=== PATIENT | female | born 1935 | race Caucasian/White ===

== ENCOUNTER 2018-06-08 01:34 | Inpatient (IN) | payer MEDICARE, MEDICAID ==
[~2018-06-08] VITALS: Ht 162.6 cm; Wt 71.4 kg
[~2018-06-08 01:34] MED LIST: AMIT10TA PO; LORA-445 PO
[2018-06-08] MEDS ORDERED: MORPHINE SULFATE 4 MG/ML, 1ML IVPush PRN (02:00)
[2018-06-08] MEDS ORDERED: ONDANSETRON 2MG/ML, 2ML IVPush ONE (02:00)
[2018-06-08 02:13] LABS: BASOPHILS # (AUTO) 0.02 x10^3/uL (0-0.1); BASOPHILS % (AUTO) 0 % (0-1); EOSINOPHILS # (AUTO) 0.18 x10^3/uL (0-0.4); EOSINOPHILS % (AUTO) 2 % (1-7); LYMPHOCYTES # (AUTO) 1.81 x10^3/uL (1-3.4); LYMPHOCYTES % (AUTO) 22 % (22-44); MD NO; MEAN CORPUSCULAR HGB CONC 33.7 g/dL (32.4-35.8); MEAN CORPUSCULAR VOLUME 103.9 fL (80-100); MEAN PLATELET VOLUME 8.4 fL (7.4-10.4); MONOCYTES % (AUTO) 7 % (2-9); NEUTROPHILS # (AUTO) 5.66 x10^3/uL (1.8-6.8); NEUTROPHILS % (AUTO) 68 % (42-75); PLATELET COUNT 181 x10^3/uL (130-400); RED BLOOD COUNT 3.33 x10^6/uL (3.82-5.3); RED CELL DISTRIBUTION WIDTH 14.4 % (9.6-15.2)
[2018-06-08 02:23] LABS: ALBUMIN 3.2 g/dL (3.4-5.0); ANION GAP 9 mmol/L (5-15); CALCIUM 8.4 mg/dL (8.5-10.1); CHLORIDE 101 mmol/L (98-107); CREATININE 0.53 mg/dL (0.55-1.02)
[2018-06-08] MEDS ORDERED: MORPHINE SULFATE 4 MG/ML, 1ML ONE (02:23)
[2018-06-08] MEDS ORDERED: ONDANSETRON 2MG/ML, 2ML ONE ×4 (02:23→10:25)
[2018-06-08] MEDS ORDERED: ONDANSETRON 2MG/ML, 2ML IVPush PRN ×2 (04:00→04:30)
[2018-06-08] MEDS ORDERED: NS + 20MEQ KCL 1,000 ML IV SCH (04:16)
[2018-06-08] MEDS ORDERED: GLUCAGON 1 MG IM PRN (04:30)
[2018-06-08] MEDS ORDERED: DOCUSATE 100 MG CAPSULE PO PRN (04:30)
[2018-06-08] MEDS ORDERED: POLYETHYLENE GLYCOL 17 GM PACKET PO PRN (04:30)
[2018-06-08] MEDS ORDERED: DEXTROSE 4 GM TAB.CHEW PO PRN (04:30)
[2018-06-08] MEDS ORDERED: DEXTROSE 50%, 50ML SYRINGE IVPush PRN (04:30)
[2018-06-08] MEDS ORDERED: morphine SULFATE 10 MG/ML, 1ML IVPush PRN (04:30)
[2018-06-08] MEDS ORDERED: ACETAMINOPHEN 325 MG TABLET PO PRN ×3 (04:30→10:30)
[2018-06-08 07:01] VITALS: BP 114/72
[2018-06-08] MEDS: INSULIN LISPRO 100 UNITS/ML, PEN SQ-INSULIN SCH ×4 (08:41→21:00)
[2018-06-08] MEDS ORDERED: FENTANYL PF 100 MCG/2ML ONE (08:54)
[2018-06-08] MEDS: SODIUM CHLORIDE FLUSH 10ML SYR IVF SCH ×2 (09:00→21:00)
[2018-06-08] MEDS: SENNA/DOCUSATE TABLET PO SCH (09:00)
[2018-06-08] MEDS: LORazepam 0.5MG TABLET PO SCH (09:00)
[2018-06-08] MEDS ORDERED: PROPOFOL 10 MG/ML, 20ML ONE (09:35)
[2018-06-08] MEDS ORDERED: CEFAZOLIN 1,000 MG ONE (09:35)
[2018-06-08] MEDS ORDERED: BUPIVACAINE/PF 0.5% ONE (09:35)
[2018-06-08] MEDS ORDERED: DEXAMETHASONE 4 MG/ML, 1ML ONE (09:35)
[2018-06-08] MEDS ORDERED: OXYcodone 5 MG/5 ML ORAL.SOL UDC ONE (10:17)
[2018-06-08] MEDS ORDERED: OXYcodone 5 MG/5 ML ORAL.SOL UDC PO PRN ×2 (10:30)
[2018-06-08] MEDS ORDERED: ONDANSETRON 2MG/ML, 2ML IV PRN ×2 (10:30)
[2018-06-08] MEDS ORDERED: MIDAZOLAM 1 MG/ML, 2ML IV PRN (10:30)
[2018-06-08] MEDS ORDERED: FENTANYL PF 100 MCG/2ML IV PRN ×2 (10:30)
[2018-06-08] MEDS ORDERED: SUCCINYLCHOLINE 20 MG/ML, 10ML ONE (11:00)
[2018-06-08 14:30] VITALS: BP 91/62
[2018-06-08] MEDS: OXYcodone/APAP 5/325MG TABLET PO PRN ×2 (14:43→19:00)
[2018-06-08] MEDS: CEFAZOLIN PMX 1GM/50ML 50 ML IV SCH ×2 (14:44→23:35)
[2018-06-08 20:00] VITALS: BP 100/54
[2018-06-08] MEDS: AMITRIPTYLINE 25 MG TABLET PO SCH (21:33)
[2018-06-09 02:04] VITALS: BP 121/76
[2018-06-09 05:30] LABS: BASOPHILS # (AUTO) 0.02 x10^3/uL (0-0.1); BASOPHILS % (AUTO) 0 % (0-1); EOSINOPHILS % (AUTO) 0 % (1-7); LYMPHOCYTES # (AUTO) 1.34 x10^3/uL (1-3.4); LYMPHOCYTES % (AUTO) 18 % (22-44); MD NO; MEAN CORPUSCULAR HGB CONC 33.1 g/dL (32.4-35.8); MEAN CORPUSCULAR VOLUME 105.8 fL (80-100); MEAN PLATELET VOLUME 8.5 fL (7.4-10.4); MONOCYTES # (AUTO) 1.02 x10^3/uL (0.2-0.8); MONOCYTES % (AUTO) 14 % (2-9); NEUTROPHILS % (AUTO) 69 % (42-75); PLATELET COUNT 132 x10^3/uL (130-400); RED BLOOD COUNT 2.28 x10^6/uL (3.82-5.3); RED CELL DISTRIBUTION WIDTH 14.6 % (9.6-15.2)
[2018-06-09 05:38] LABS: CHLORIDE 102 mmol/L (98-107)
[2018-06-09 05:47] LABS: ANION GAP 7 mmol/L (5-15); CALCIUM 7.4 mg/dL (8.5-10.1); CREATININE 0.37 mg/dL (0.55-1.02)
[2018-06-09] MEDS: ENOXAPARIN 40 MG/0.4 ML SQ SCH (06:12)
[2018-06-09] MEDS: INSULIN LISPRO 100 UNITS/ML, PEN SQ-INSULIN SCH ×4 (06:12→21:37)
[2018-06-09] MEDS: CEFAZOLIN PMX 1GM/50ML 50 ML IV SCH (07:38)
[2018-06-09] MEDS: SENNA/DOCUSATE TABLET PO SCH (07:39)
[2018-06-09] MEDS: LORazepam 0.5MG TABLET PO SCH (07:39)
[2018-06-09 08:30] VITALS: BP 138/79
[2018-06-09] MEDS: SODIUM CHLORIDE FLUSH 10ML SYR IVF SCH ×2 (09:00→21:15)
[2018-06-09] MEDS: OXYcodone/APAP 5/325MG TABLET PO PRN ×3 (10:09→21:37)
[2018-06-09 12:50] VITALS: BP 107/70
[2018-06-09 19:55] VITALS: BP 102/65
[2018-06-09] MEDS: AMITRIPTYLINE 25 MG TABLET PO SCH (21:14)
[2018-06-10] VITALS (9 sets, daily range): BP systolic 87–133; BP diastolic 53–82
[2018-06-10] MEDS: OXYcodone/APAP 5/325MG TABLET PO PRN ×3 (03:51→23:19)
[2018-06-10 05:28] LABS: ALBUMIN 2.5 g/dL (3.4-5.0); ANION GAP 9 mmol/L (5-15); CALCIUM 7.8 mg/dL (8.5-10.1); CHLORIDE 96 mmol/L (98-107)
[2018-06-10 05:29] LABS: CREATININE 0.49 mg/dL (0.55-1.02); MEAN CORPUSCULAR HEMOGLOBIN 35.2 pg (27.0-34.8); MEAN CORPUSCULAR HGB CONC 33.4 g/dL (32.4-35.8); MEAN CORPUSCULAR VOLUME 105.3 fL (80-100); MEAN PLATELET VOLUME 8.6 fL (7.4-10.4); PLATELET COUNT 134 x10^3/uL (130-400); RED BLOOD COUNT 2.05 x10^6/uL (3.82-5.3); RED CELL DISTRIBUTION WIDTH 14.5 % (9.6-15.2)
[2018-06-10 05:47] LABS: BASOPHILS # (AUTO) 0.04 x10^3/uL (0-0.1); BASOPHILS % (AUTO) 0 % (0-1); EOSINOPHILS # (AUTO) 0.14 x10^3/uL (0-0.4); EOSINOPHILS % (AUTO) 2 % (1-7); LYMPHOCYTES # (AUTO) 2.47 x10^3/uL (1-3.4); LYMPHOCYTES % (AUTO) 30 % (22-44); MD SCAN; MONOCYTES # (AUTO) 1.26 x10^3/uL (0.2-0.8); MONOCYTES % (AUTO) 15 % (2-9); NEUTROPHILS # (AUTO) 4.35 x10^3/uL (1.8-6.8); NEUTROPHILS % (AUTO) 53 % (42-75)
[2018-06-10] MEDS: ENOXAPARIN 40 MG/0.4 ML SQ SCH (06:00)
[2018-06-10] MEDS: INSULIN LISPRO 100 UNITS/ML, PEN SQ-INSULIN SCH ×2 (07:00→12:16)
[2018-06-10 07:19] LABS: FOLATE LEVEL > 20.0 ng/mL (3.1-17.5)
[2018-06-10] MEDS: SENNA/DOCUSATE TABLET PO SCH (08:41)
[2018-06-10] MEDS: LORazepam 0.5MG TABLET PO SCH (08:41)
[2018-06-10] MEDS: SODIUM CHLORIDE FLUSH 10ML SYR IVF SCH ×2 (08:42→20:37)
[2018-06-10 13:43] LABS: HEMOGLOBIN A1C 6.1 % (4.2-6.3)
[2018-06-11 02:09] VITALS: BP 110/58
[2018-06-11] MEDS: ENOXAPARIN 40 MG/0.4 ML SQ SCH (05:41)
[2018-06-11 05:46] LABS: ANION GAP 5 mmol/L (5-15); CALCIUM 8.1 mg/dL (8.5-10.1); CHLORIDE 95 mmol/L (98-107)
[2018-06-11 05:47] LABS: BASOPHILS # (AUTO) 0.03 x10^3/uL (0-0.1); BASOPHILS % (AUTO) 0 % (0-1); EOSINOPHILS # (AUTO) 0.24 x10^3/uL (0-0.4); EOSINOPHILS % (AUTO) 3 % (1-7); LYMPHOCYTES # (AUTO) 2.24 x10^3/uL (1-3.4); LYMPHOCYTES % (AUTO) 27 % (22-44); MD NO; MEAN CORPUSCULAR HEMOGLOBIN 34.6 pg (27.0-34.8); MEAN CORPUSCULAR HGB CONC 34.1 g/dL (32.4-35.8); MEAN CORPUSCULAR VOLUME 101.6 fL (80-100); MEAN PLATELET VOLUME 8.6 fL (7.4-10.4); MONOCYTES # (AUTO) 1.04 x10^3/uL (0.2-0.8); MONOCYTES % (AUTO) 13 % (2-9); NEUTROPHILS # (AUTO) 4.73 x10^3/uL (1.8-6.8); NEUTROPHILS % (AUTO) 57 % (42-75); PLATELET COUNT 146 x10^3/uL (130-400); RED CELL DISTRIBUTION WIDTH 16.5 % (9.6-15.2)
[2018-06-11 05:50] LABS: CREATININE 0.33 mg/dL (0.55-1.02)
[2018-06-11] MEDS: metFORMIN XR 500 MG TAB.ER.24H PO SCH (07:47)
[2018-06-11] MEDS: SENNA/DOCUSATE TABLET PO SCH (07:47)
[2018-06-11] MEDS: SODIUM CHLORIDE FLUSH 10ML SYR IVF SCH ×2 (07:49→20:45)
[2018-06-11 08:45] VITALS: BP 115/72
[2018-06-11 12:28] LABS: ALBUMIN 2.3 g/dL (3.4-5.0); BILIRUBIN, DIRECT 0.8 mg/dL (0.1-0.2)
[2018-06-11 12:38] LABS: BILIRUBIN,INDIRECT 0.7 mg/dL (0.0-2.0); BILIRUBIN,TOTAL 1.5 mg/dL (0.2-1.0); TOTAL PROTEIN 5.7 g/dL (6.4-8.2)
[2018-06-11] MEDS ORDERED: BISACODYL 10 MG SUPP PR PRN (14:30)
[2018-06-11 14:45] VITALS: BP 109/62
[2018-06-11] MEDS: OXYcodone/APAP 5/325MG TABLET PO PRN (18:42)
[2018-06-11 20:03] VITALS: BP 114/75
[2018-06-12] MEDS: OXYcodone/APAP 5/325MG TABLET PO PRN ×2 (00:37→18:08)
[2018-06-12 01:55] VITALS: BP 105/64
[2018-06-12 05:33] LABS: BASOPHILS # (AUTO) 0.03 x10^3/uL (0-0.1); BASOPHILS % (AUTO) 0 % (0-1); EOSINOPHILS # (AUTO) 0.21 x10^3/uL (0-0.4); EOSINOPHILS % (AUTO) 3 % (1-7); LYMPHOCYTES # (AUTO) 2.14 x10^3/uL (1-3.4); LYMPHOCYTES % (AUTO) 27 % (22-44); MD NO; MEAN CORPUSCULAR HEMOGLOBIN 34.8 pg (27.0-34.8); MEAN CORPUSCULAR HGB CONC 33.9 g/dL (32.4-35.8); MEAN CORPUSCULAR VOLUME 102.6 fL (80-100); MEAN PLATELET VOLUME 8.4 fL (7.4-10.4); MONOCYTES # (AUTO) 0.97 x10^3/uL (0.2-0.8); MONOCYTES % (AUTO) 12 % (2-9); NEUTROPHILS # (AUTO) 4.63 x10^3/uL (1.8-6.8); NEUTROPHILS % (AUTO) 58 % (42-75); PLATELET COUNT 158 x10^3/uL (130-400); RED BLOOD COUNT 2.38 x10^6/uL (3.82-5.3); RED CELL DISTRIBUTION WIDTH 16.2 % (9.6-15.2)
[2018-06-12 05:56] LABS: ALANINE AMINOTRANSFERASE 214 U/L (12-78); ALBUMIN 2.1 g/dL (3.4-5.0); ANION GAP 5 mmol/L (5-15); CALCIUM 7.5 mg/dL (8.5-10.1); CHLORIDE 96 mmol/L (98-107); CREATININE 0.29 mg/dL (0.55-1.02)
[2018-06-12 05:59] LABS: ALKALINE PHOSPHATASE 90 U/L (45-117); TOTAL PROTEIN 5.5 g/dL (6.4-8.2)
[2018-06-12] MEDS: ENOXAPARIN 40 MG/0.4 ML SQ SCH (06:19)
[2018-06-12 07:41] VITALS: BP 109/70
[2018-06-12] MEDS: metFORMIN XR 500 MG TAB.ER.24H PO SCH (08:22)
[2018-06-12] MEDS: SENNA/DOCUSATE TABLET PO SCH (08:22)
[2018-06-12] MEDS: SODIUM CHLORIDE FLUSH 10ML SYR IVF SCH (08:24)
[2018-06-12] MEDS ORDERED: OXYC5TAB2 PO (12:19)
[2018-06-12] MEDS ORDERED: ACET325T14 PO (12:19)
[2018-06-12] MEDS ORDERED: HYDR-3622 PO (12:33)
[2018-06-12 13:27] VITALS: BP 125/60
[2018-06-12 13:57] VITALS: BP 112/70
[2018-06-12 14:20] VITALS: BP 128/64
[2018-06-12 16:30] VITALS: BP 137/71
== END 2018-06-12 18:15 | DRG 481 ==
LOC: ED 03:40 → LDIP 03:56 → SUATTDRO 04:15 → 4NOR 04:45
PROVIDERS: ADMIT Family Medicine; ATTEND Family Medicine
PROC: 0QS636Z Reposition Right Upper Femur with Intramedullary Internal Fixation Device, Percutaneous Approach (ICD-10-PCS; principal; 2018-06-08 09:45)
PROC: 30233N1 Transfusion of Nonautologous Red Blood Cells into Peripheral Vein, Percutaneous Approach (ICD-10-PCS; 2018-06-10)
DX: S72.141A Displaced intertrochanteric fracture of right femur, initial encounter for closed fracture (principal); E44.1 Mild protein-calorie malnutrition; E87.1 Hypo-osmolality and hyponatremia; I10 Essential (primary) hypertension; D53.9 Nutritional anemia, unspecified; W01.0XXA Fall on same level from slipping, tripping and stumbling without subsequent striking against object, initial encounter; Y93.01 Activity, walking, marching and hiking; R33.9 Retention of urine, unspecified; F41.9 Anxiety disorder, unspecified; E88.09 Other disorders of plasma-protein metabolism, not elsewhere classified; G62.9 Polyneuropathy, unspecified; E83.51 Hypocalcemia; E87.8 Other disorders of electrolyte and fluid balance, not elsewhere classified; Y93.89 Activity, other specified; Y92.89 Other specified places as the place of occurrence of the external cause; Y99.8 Other external cause status; Z83.3 Family history of diabetes mellitus; Z68.27 Body mass index [BMI] 27.0-27.9, adult
CPT/HCPCS: 36415; 36430; 71045; 76000; 80048; 80053; 80076; 82040; 82607; 82746; 82962; 83036; 83735; 84443; 85025; 86803; 86850; 86870; 86900; 86902; 86922; 86923; 87340; 93005; 96374; C1713; G0378; J0690; J1100; J1650; J2405; J2704; J3010; J3480; J3490; J0330; P9016

== ENCOUNTER 2018-08-10 15:04 | Inpatient (IN) | payer MEDICARE, MEDICAID ==
[~2018-08-10] VITALS: Ht 160 cm; Wt 65.4 kg
[~2018-08-10 15:04] MED LIST changes: +ACET325T14 PO; +HYDR-3622 PO; +OXYC5TAB2 PO
[2018-08-10] MEDS ORDERED: ONDANSETRON 2MG/ML, 2ML IVPush ONE (15:30)
[2018-08-10] MEDS ORDERED: SODIUM CHLORIDE FLUSH 10ML SYR IVF ONE (15:30)
[2018-08-10 15:36] LABS: BASOPHILS # (AUTO) 0.02 x10^3/uL (0-0.1); BASOPHILS % (AUTO) 0 % (0-1); EOSINOPHILS # (AUTO) 0.09 x10^3/uL (0-0.4); EOSINOPHILS % (AUTO) 2 % (1-7); LYMPHOCYTES # (AUTO) 1.97 x10^3/uL (1-3.4); LYMPHOCYTES % (AUTO) 40 % (22-44); MD NO; MEAN CORPUSCULAR HEMOGLOBIN 32.3 pg (27.0-34.8); MEAN CORPUSCULAR HGB CONC 32.8 g/dL (32.4-35.8); MEAN CORPUSCULAR VOLUME 98.4 fL (80-100); MEAN PLATELET VOLUME 9.5 fL (7.4-10.4); MONOCYTES # (AUTO) 0.51 x10^3/uL (0.2-0.8); MONOCYTES % (AUTO) 10 % (2-9); NEUTROPHILS # (AUTO) 2.35 x10^3/uL (1.8-6.8); NEUTROPHILS % (AUTO) 48 % (42-75); PLATELET COUNT 156 x10^3/uL (130-400); RED BLOOD COUNT 3.89 x10^6/uL (3.82-5.3); RED CELL DISTRIBUTION WIDTH 15.6 % (9.6-15.2)
[2018-08-10 15:47] LABS: ALANINE AMINOTRANSFERASE 11 U/L (12-78); ALBUMIN 2.9 g/dL (3.4-5.0); ANION GAP 7 mmol/L (5-15); CALCIUM 8.2 mg/dL (8.5-10.1); CHLORIDE 107 mmol/L (98-107); CREATININE 0.53 mg/dL (0.55-1.02)
[2018-08-10 15:52] LABS: ALKALINE PHOSPHATASE 100 U/L (45-117); BILIRUBIN,TOTAL 0.4 mg/dL (0.2-1.0); TOTAL PROTEIN 6.4 g/dL (6.4-8.2); TROPONIN I < 0.015 ng/mL (0.000-0.045)
[2018-08-10] MEDS ORDERED: ONDANSETRON 2MG/ML, 2ML ONE (15:58)
[2018-08-10] MEDS ORDERED: OMNIPAQUE 350 MG/ML, 100ML BOTTLE ONE (16:34)
[2018-08-10] MEDS ORDERED: SODIUM CHLORIDE 0.9% 1,000 ML IV ONE (17:37)
[2018-08-10] MEDS ORDERED: SODIUM CHLORIDE FLUSH 10ML SYR IVF PRN (18:00)
[2018-08-10] MEDS ORDERED: DOCUSATE 100 MG CAPSULE PO PRN (19:00)
[2018-08-10] MEDS ORDERED: BISACODYL 10 MG SUPP PR PRN (19:00)
[2018-08-10] MEDS ORDERED: hydrALAzine 20 MG/ML, 1ML IVPush PRN (19:00)
[2018-08-10] MEDS ORDERED: LABETALOL 5MG/ML, 20ML IVPush PRN (19:00)
[2018-08-10] MEDS ORDERED: POLYETHYLENE GLYCOL 17 GM PACKET PO PRN (19:00)
[2018-08-10] MEDS ORDERED: HYDROcodone/APAP 10/325 MG TABLET PO PRN (19:00)
[2018-08-10 19:01] LABS: MICROSCOPIC NOT IND
[2018-08-10 19:10] LABS: CULTURE INDICATED? NO
[2018-08-10 19:19] VITALS: BP 157/74
[2018-08-10 19:36] VITALS: BP 157/74
[2018-08-10] MEDS: SODIUM CHLORIDE 0.9% 1,000 ML IV SCH (20:26)
[2018-08-10] MEDS ORDERED: LISINOPRIL 20 MG TABLET PO ONE (21:30)
[2018-08-10] MEDS: ONDANSETRON 2MG/ML, 2ML IVPush PRN (22:53)
[2018-08-11 00:17] VITALS: BP 155/65
[2018-08-11] MEDS: SODIUM CHLORIDE 0.9% 1,000 ML IV SCH ×2 (03:32→23:01)
[2018-08-11 05:15] LABS: BASOPHILS # (AUTO) 0.04 x10^3/uL (0-0.1); BASOPHILS % (AUTO) 1 % (0-1); EOSINOPHILS % (AUTO) 2 % (1-7); LYMPHOCYTES # (AUTO) 2.02 x10^3/uL (1-3.4); LYMPHOCYTES % (AUTO) 40 % (22-44); MD NO; MEAN CORPUSCULAR HEMOGLOBIN 32.7 pg (27.0-34.8); MEAN CORPUSCULAR HGB CONC 32.8 g/dL (32.4-35.8); MEAN CORPUSCULAR VOLUME 99.8 fL (80-100); MEAN PLATELET VOLUME 9.7 fL (7.4-10.4); MONOCYTES # (AUTO) 0.63 x10^3/uL (0.2-0.8); MONOCYTES % (AUTO) 12 % (2-9); NEUTROPHILS # (AUTO) 2.32 x10^3/uL (1.8-6.8); NEUTROPHILS % (AUTO) 46 % (42-75); PLATELET COUNT 155 x10^3/uL (130-400); RED BLOOD COUNT 3.71 x10^6/uL (3.82-5.3); RED CELL DISTRIBUTION WIDTH 15.5 % (9.6-15.2)
[2018-08-11] MEDS: OMEPRAZOLE 20 MG CAPSULE.DR PO SCH ×2 (05:18→19:39)
[2018-08-11 05:26] LABS: ANION GAP 7 mmol/L (5-15); CALCIUM 7.9 mg/dL (8.5-10.1); CHLORIDE 110 mmol/L (98-107); CREATININE 0.47 mg/dL (0.55-1.02)
[2018-08-11 05:44] LABS: HEMOGLOBIN A1C 5.4 % (4.2-6.3)
[2018-08-11 06:59] VITALS: BP 167/49
[2018-08-11] MEDS: LISINOPRIL 20 MG TABLET PO SCH (11:15)
[2018-08-11] MEDS: ONDANSETRON 2MG/ML, 2ML IVPush PRN ×3 (11:15→23:00)
[2018-08-11 12:19] VITALS: BP 131/93
[2018-08-11] MEDS: ONDANSETRON ODT 4 MG PO PRN ×2 (14:34→19:46)
[2018-08-11 18:57] VITALS: BP 151/61
[2018-08-12 00:39] VITALS: BP 165/72
[2018-08-12] MEDS: OMEPRAZOLE 20 MG CAPSULE.DR PO SCH ×2 (02:15→20:31)
[2018-08-12 06:43] VITALS: BP 159/76
[2018-08-12] MEDS: SODIUM CHLORIDE 0.9% 1,000 ML IV SCH (07:52)
[2018-08-12] MEDS: LISINOPRIL 20 MG TABLET PO SCH (08:07)
[2018-08-12] MEDS ORDERED: FENTANYL PF 100 MCG/2ML ONE (08:41)
[2018-08-12] MEDS ORDERED: MIDAZOLAM 1 MG/ML, 5ML ONE (08:42)
[2018-08-12 12:24] VITALS: BP 159/82
[2018-08-12] MEDS: ENOXAPARIN 40 MG/0.4 ML SQ SCH (12:35)
[2018-08-12] MEDS: LOSARTAN 50MG TABLET PO SCH (12:35)
[2018-08-12 14:09] LABS: CLOSTRIDIUM DIFFICILE ANTIGEN NEGATIVE; CLOSTRIDIUM DIFFICILE TOXIN NEGATIVE (Negative)
[2018-08-12 17:35] VITALS: BP 168/74
[2018-08-12] MEDS: METOPROLOL TARTRATE 50 MG TABLET PO SCH (17:36)
[2018-08-12] MEDS: ACETAMINOPHEN 325 MG TABLET PO PRN ×2 (17:36→23:04)
[2018-08-12 19:10] VITALS: BP 181/79
[2018-08-12] MEDS: ONDANSETRON 2MG/ML, 2ML IVPush PRN (20:31)
[2018-08-12] MEDS ORDERED: ATORVASTATIN 40 MG TABLET PO SCH (21:00)
[2018-08-12 21:28] VITALS: BP 133/64
[2018-08-13 01:19] VITALS: BP 124/74
[2018-08-13 05:35] VITALS: BP 137/68
[2018-08-13] MEDS: ACETAMINOPHEN 325 MG TABLET PO PRN ×3 (05:36→17:00)
[2018-08-13] MEDS: OMEPRAZOLE 20 MG CAPSULE.DR PO SCH (05:36)
[2018-08-13] MEDS: METOPROLOL TARTRATE 50 MG TABLET PO SCH (05:37)
[2018-08-13 07:05] VITALS: BP 143/83
[2018-08-13] MEDS: LOSARTAN 50MG TABLET PO SCH (08:40)
[2018-08-13] MEDS ORDERED: DILTIAZEM 120 MG CAP.ER.12H PO SCH (11:00)
[2018-08-13] MEDS ORDERED: DILT120C11 PO (11:35)
[2018-08-13] MEDS ORDERED: OMEP-110 PO (11:35)
[2018-08-13] MEDS ORDERED: LOSA50TA2 PO (11:35)
[2018-08-13] MEDS: ENOXAPARIN 40 MG/0.4 ML SQ SCH (11:58)
[2018-08-13 12:58] VITALS: BP 147/69
== END 2018-08-13 17:08 | disposition home or self-care (01) | DRG 391 ==
LOC: ED 15:14 → EDIP 17:37 → 3NE 19:05
PROVIDERS: ADMIT Family Medicine; ATTEND Family Medicine
PROC: 0T9B70Z Drainage of Bladder with Drainage Device, Via Natural or Artificial Opening (ICD-10-PCS; 2018-08-10)
PROC: 0DJ68ZZ Inspection of Stomach, Via Natural or Artificial Opening Endoscopic (ICD-10-PCS; principal; 2018-08-12 09:00)
DX: K22.4 Dyskinesia of esophagus (principal); E43 Unspecified severe protein-calorie malnutrition; K21.9 Gastro-esophageal reflux disease without esophagitis; R13.14 Dysphagia, pharyngoesophageal phase; E11.9 Type 2 diabetes mellitus without complications; K22.8 Other specified diseases of esophagus; K42.9 Umbilical hernia without obstruction or gangrene; Z66 Do not resuscitate; I10 Essential (primary) hypertension; N28.89 Other specified disorders of kidney and ureter; E83.51 Hypocalcemia; E88.09 Other disorders of plasma-protein metabolism, not elsewhere classified; Z60.2 Problems related to living alone; Z99.81 Dependence on supplemental oxygen; Z87.81 Personal history of (healed) traumatic fracture; Z82.5 Family history of asthma and other chronic lower respiratory diseases; Z80.3 Family history of malignant neoplasm of breast; Z82.49 Family history of ischemic heart disease and other diseases of the circulatory system; Z91.14 Patient's other noncompliance with medication regimen; Z68.25 Body mass index [BMI] 25.0-25.9, adult
CPT/HCPCS: 36415; 74177; 74230; 80048; 80053; 81003; 82274; 83036; 83690; 84443; 84484; 85025; 87324; 89055; 93005; 99152; 99153; 99285; G0378; J1650; J2250; J2405; J3010; Q0162; Q9967; J0360; J7030

== ENCOUNTER → 2018-11-20 | Outpatient (CLI) | payer MEDICARE, MEDICAID ==
[~2018-11-20] MED LIST changes: +DILT120C11 PO; +GADOBUTROL 7.5 MMOL/7.5 ML VIAL ONE; +LOSA50TA2 PO; +OMEP-110 PO
== END | disposition home or self-care (01) ==
LOC: CFH 09:32
PROVIDERS: ATTEND Urology
DX: D49.511 Neoplasm of unspecified behavior of right kidney (principal); K42.9 Umbilical hernia without obstruction or gangrene; K86.89 Other specified diseases of pancreas; Z90.49 Acquired absence of other specified parts of digestive tract
CPT/HCPCS: 74183; A9585

== ENCOUNTER 2021-03-15 09:28 | Inpatient (IN) | payer MEDICAID, MEDICARE ==
[~2021-03-15] VITALS: Ht 160 cm; Wt 75.0 kg
[~2021-03-15 09:28] MED LIST changes: -GADOBUTROL 7.5 MMOL/7.5 ML VIAL ONE
[2021-03-15] MEDS ORDERED: MAALOX/HYOSCYAMINE/LIDOCAINE 45 ML BTL ONE (10:10)
[2021-03-15 10:24] LABS: BASOPHILS % (AUTO) 0 % (0-1); EOSINOPHILS % (AUTO) 1 % (1-7); LYMPHOCYTES % (AUTO) 11 % (22-44); MEAN CORPUSCULAR HEMOGLOBIN 35.6 pg (27.0-34.8); MEAN CORPUSCULAR HGB CONC 33.4 g/dL (32.4-35.8); MEAN PLATELET VOLUME 8.1 fL (7.4-10.4); MONOCYTES % (AUTO) 8 % (2-9); NEUTROPHILS % (AUTO) 80 % (42-75); PLATELET COUNT 207 x10^3/uL (130-400); RED BLOOD COUNT 3.74 x10^6/uL (3.82-5.3)
--- NOTE | 2021-03-15 10:24 | NUR ---
PT STATES EPIGASTRIC PAIN X3 DAYS R/T UMBILICAL HERNIA. PT'S CAREGIVER AT BEDSIDE WITH PT. PT MEDICATED PER ORDERS. CONT TO MONITOR.
[2021-03-15] MEDS ORDERED: MAALOX/HYOSCYAMINE/LIDOCAINE 45 ML BTL PO ONE (10:30)
[2021-03-15 10:31] LABS: ALANINE AMINOTRANSFERASE 23 U/L (12-78); ALBUMIN 3.4 g/dL (3.4-5.0); ANION GAP 6 mmol/L (5-15); CALCIUM 9.3 mg/dL (8.5-10.1); CHLORIDE 102 mmol/L (98-107); CREATININE 0.72 mg/dL (0.55-1.02)
[2021-03-15 10:36] LABS: ALKALINE PHOSPHATASE 58 U/L (45-117); BILIRUBIN,TOTAL 0.7 mg/dL (0.2-1.0); TOTAL PROTEIN 7.2 g/dL (6.4-8.2); TROPONIN I < 0.015 ng/mL (0.000-0.045)
[2021-03-15 11:00] LABS: <PLATELET ESTIMATE> ADEQUATE; <PLT MORPHOLOGY> NORMAL PLT MORPH
--- NOTE | 2021-03-15 11:25 | NUR ---
PT TO CT. VSS. CONT TO MONITOR.
[2021-03-15] MEDS ORDERED: SODIUM CHLORIDE FLUSH 10ML SYR IVF ONE (11:30)
[2021-03-15] MEDS ORDERED: OMNIPAQUE 350 MG/ML, 100ML BOTTLE ONE (11:38)
[2021-03-15] MEDS ORDERED: LACTATED RINGERS 1,000 ML IV SCH (12:30)
--- NOTE | 2021-03-15 12:33 | NUR ---
ADMITTING AT [facility]. PT AWARE OF POC, WILL NEED NG TUBE, WILL PLACE AFTER ADMITTING ASSESSMENT. LAB AT BEDSIDE FOR LAB DRAW. CONT TO MONITOR.
[2021-03-15 12:54] LABS: INTERNATIONAL NORMALIZED RATIO 0.97 (0.93-1.1); PROTHROMBIN TIME 10.4 Seconds (9.6-11.5)
--- NOTE | 2021-03-15 13:05 | NUR ---
DR. JADE AT BEDSIDE FOR ASSESSMENT. PT NOT TOLERATING NG. PER DR. JADE, PT CAN HAVE NG STARTED IN OR.
--- NOTE | 2021-03-15 13:40 | NUR ---
REPORT GIVEN TO JAZIEL GREGG. AWARE PT WILL NEED NG TUBE IN OR PT DID NOT TOLERATE PLACEMENT. PT TRANSFERED TO FLOOR, HAS ALL OWN BELONGINGS.
[2021-03-15] MEDS ORDERED: ONDANSETRON 2MG/ML, 2ML IVPush PRN ×2 (14:00→19:30)
[2021-03-15] MEDS ORDERED: morphine SULFATE 10 MG/ML, 1ML IVPush PRN (14:00)
[2021-03-15] MEDS: LACTATED RINGERS 1,000 ML IV SCH ×2 (14:26→20:43)
[2021-03-15 14:36] LABS: FREE T4 (FREE THYROXINE) 1.28 ng/dL (0.76-1.46)
[2021-03-15 15:33] VITALS: BP 140/55
[2021-03-15] MEDS ORDERED: FENTANYL PF 250 MCG/5ML ONE (17:55)
[2021-03-15] MEDS ORDERED: PHENYLEPHRINE 10 MG/ML ONE (18:28)
[2021-03-15] MEDS ORDERED: EPHEDRINE 50 MG/ML, 1ML ONE (18:28)
[2021-03-15] MEDS ORDERED: SUGAMMADEX 200 MG/2 ML IVPush ONE (18:28)
[2021-03-15] MEDS ORDERED: CEFOTETAN 2 GM ONE (18:28)
[2021-03-15] MEDS ORDERED: MONT10TA6 PO (18:47)
[2021-03-15] MEDS ORDERED: FLUT15.845 XX (18:49)
[2021-03-15] MEDS ORDERED: ATOR40TA78 PO (18:50)
[2021-03-15] MEDS ORDERED: ALEN70TA77 PO (18:51)
[2021-03-15] MEDS ORDERED: ALBUTEROL/IPRATROPIUM 2.5MG/0.5MG, 3 ML NPPB PRN (19:30)
[2021-03-15] MEDS ORDERED: ACETAMINOPHEN 325 MG TABLET PO PRN (19:30)
[2021-03-15] MEDS ORDERED: HYDROmorphone 1 MG/ML, 1ML INJ IVPush PRN (19:30)
[2021-03-15] MEDS ORDERED: LABETALOL 5MG/ML, 20ML IV PRN (19:30)
[2021-03-15] MEDS ORDERED: PROMETHAZINE 25 MG/ML, 1ML IVPush PRN (19:30)
[2021-03-15] MEDS ORDERED: FENTANYL PF 100 MCG/2ML IV PRN (19:30)
[2021-03-15] MEDS ORDERED: hydrALAzine 20 MG/ML, 1ML IV PRN (19:30)
[2021-03-15] MEDS ORDERED: METHOCARBAMOL 1,000 MG in DEXTROSE 5% 100 ML IV PRN (19:30)
[2021-03-15] MEDS ORDERED: PROMETHAZINE 25 MG SUPP PR PRN (19:30)
[2021-03-15] MEDS ORDERED: NEOSTIGMINE 1 MG/ML, 10ML ONE (19:58)
[2021-03-15] MEDS ORDERED: SUCCINYLCHOLINE 20 MG/ML, 10ML ONE (19:58)
[2021-03-15] MEDS ORDERED: ONDANSETRON 2MG/ML, 2ML ONE (19:58)
[2021-03-15] MEDS ORDERED: PROPOFOL 10 MG/ML, 20ML ONE (19:58)
[2021-03-15] MEDS ORDERED: ROCURONIUM 10MG/ML,5ML ONE (19:58)
[2021-03-15] MEDS ORDERED: CEFAZOLIN 1,000 MG ONE (19:58)
[2021-03-15] MEDS ORDERED: GLYCOPYRROLATE 0.2MG/1ML, 5ML ONE (19:58)
[2021-03-15] MEDS ORDERED: FENTANYL PF 100 MCG/2ML ONE (20:19)
[2021-03-15] MEDS ORDERED: OXYcodone 5 MG/5 ML ORAL.SOL UDC ONE ×2 (20:19→20:59)
[2021-03-15] MEDS ORDERED: ACETAMINOPHEN 650 MG/20.3 ML UDC ONE (20:20)
[2021-03-15] MEDS: OXYcodone 5 MG/5 ML ORAL.SOL UDC PO PRN ×2 (20:43→21:00)
[2021-03-15] MEDS ORDERED: HALOPERIDOL 5 MG/ML IVPush PRN (23:00)
[2021-03-15] MEDS ORDERED: SCOPOLAMINE PATCH, 1.5MG PATCH.TD72 TD PRN (23:00)
[2021-03-15] MEDS ORDERED: LORazepam 2 MG/ML, 1ML IVPush PRN (23:00)
[2021-03-15] MEDS ORDERED: DEXAMETHASONE 4 MG/ML, 1ML IVPush PRN (23:00)
[2021-03-15] MEDS ORDERED: TRAZODONE 50MG TABLET PO PRN (23:00)
[2021-03-15] MEDS ORDERED: CALCIUM CARBONATE 500 MG TAB.CHEW PO PRN (23:00)
[2021-03-15] MEDS ORDERED: DIPHENHYDRAMINE 25 MG CAPSULE PO PRN (23:00)
[2021-03-15] MEDS ORDERED: OXYcodone IR 5MG TABLET PO PRN (23:00)
[2021-03-15] MEDS ORDERED: LORazepam 1MG TABLET PO PRN (23:00)
[2021-03-15] MEDS: KETOROLAC 30 MG/1 ML IVPush SCH (23:49)
[2021-03-15] MEDS: ACETAMINOPHEN 500 MG TABLET PO SCH (23:49)
[2021-03-16 02:24] VITALS: BP 104/73
[2021-03-16 03:10] LABS: MEAN CORPUSCULAR HEMOGLOBIN 35.4 pg (27.0-34.8); MEAN CORPUSCULAR HGB CONC 33.3 g/dL (32.4-35.8); PLATELET COUNT 164 x10^3/uL (130-400); RED BLOOD COUNT 3.54 x10^6/uL (3.82-5.3); RED CELL DISTRIBUTION WIDTH 14.1 % (9.6-15.2)
[2021-03-16 03:27] LABS: ANION GAP 5 mmol/L (5-15); CHLORIDE 103 mmol/L (98-107); CREATININE 0.82 mg/dL (0.55-1.02)
[2021-03-16 03:49] LABS: BAND#(MANUAL) 1.46 x10^3/uL; BANDS%(MANUAL) 28 % (0-7); LYMPH#(MANUAL) 0.16 x10^3/uL (1-3.4); LYMPHS% (MANUAL) 3 % (22-44); METAMYELOCYTES# (MANUAL) 0.05 x10^3/uL (0-0); METAMYELOCYTES% (MANUAL) 1 % (0-1); MONOS#(MANUAL) 0.36 x10^3/uL (0.3-2.7); MONOS% (MANUAL) 7 % (2-9); SEG#(MANUAL) 3.17 x10^3/uL (1.8-6.8); SEGS% (MANUAL) 61 % (42-75)
[2021-03-16 03:50] LABS: <PLATELET ESTIMATE> ADEQUATE; <PLT MORPHOLOGY> NORMAL PLT MORPH; PMNS WITH VACUOLES 1+
[2021-03-16] MEDS: LACTATED RINGERS 1,000 ML IV SCH ×2 (05:27→20:45)
[2021-03-16] MEDS: ACETAMINOPHEN 500 MG TABLET PO SCH ×3 (05:27→18:31)
[2021-03-16] MEDS: KETOROLAC 30 MG/1 ML IVPush SCH ×3 (05:27→18:31)
[2021-03-16] MEDS: INSULIN LISPRO 100 UNITS/ML, PEN SQ-INSULIN SCH ×4 (07:25→21:00)
[2021-03-16 07:29] VITALS: BP 110/75
[2021-03-16] MEDS ORDERED: PANTOPRAZOLE 40 MG IV IVPush SCH (07:30)
[2021-03-16] MEDS: ENOXAPARIN 40 MG/0.4 ML SQ SCH (08:06)
[2021-03-16 12:15] VITALS: BP 89/59
[2021-03-16] MEDS: ERTAPENEM 1 GM in SODIUM CHLORIDE 0.9% 50 ML IV SCH (12:19)
[2021-03-16] MEDS ORDERED: LACTATED RINGERS 500 ML IVBOLUS ONE (12:30)
[2021-03-16 18:45] VITALS: BP 135/70
[2021-03-16 22:03] LABS: MICROSCOPIC INDICATED
[2021-03-17] MEDS: ACETAMINOPHEN 500 MG TABLET PO SCH ×5 (00:16→23:52)
[2021-03-17] MEDS: KETOROLAC 30 MG/1 ML IVPush SCH ×5 (00:16→23:53)
[2021-03-17 01:33] VITALS: BP 140/70
[2021-03-17 03:06] LABS: BASOPHILS % (AUTO) 0 % (0-1); EOSINOPHILS % (AUTO) 0 % (1-7); LYMPHOCYTES % (AUTO) 9 % (22-44); MEAN CORPUSCULAR HEMOGLOBIN 36.4 pg (27.0-34.8); MEAN PLATELET VOLUME 8.4 fL (7.4-10.4); MONOCYTES % (AUTO) 7 % (2-9); NEUTROPHILS % (AUTO) 84 % (42-75); PLATELET COUNT 135 x10^3/uL (130-400); RED BLOOD COUNT 2.89 x10^6/uL (3.82-5.3); RED CELL DISTRIBUTION WIDTH 13.8 % (9.6-15.2)
[2021-03-17 03:19] LABS: ANION GAP 3 mmol/L (5-15); CALCIUM 7.9 mg/dL (8.5-10.1); CHLORIDE 102 mmol/L (98-107); CREATININE 0.55 mg/dL (0.55-1.02)
[2021-03-17] MEDS ORDERED: LACTATED RINGERS 1,000 ML IVBOLUS ONE (04:30)
[2021-03-17] MEDS: INSULIN LISPRO 100 UNITS/ML, PEN SQ-INSULIN SCH ×4 (06:22→21:00)
[2021-03-17 06:51] VITALS: BP 134/63
[2021-03-17] MEDS: ENOXAPARIN 40 MG/0.4 ML SQ SCH (07:53)
[2021-03-17] MEDS: ERTAPENEM 1 GM in SODIUM CHLORIDE 0.9% 50 ML IV SCH (07:53)
[2021-03-17] MEDS: LACTATED RINGERS 1,000 ML IV SCH ×2 (07:54→17:25)
[2021-03-17 14:47] VITALS: BP 122/77
[2021-03-17 20:19] VITALS: BP 153/88
[2021-03-18] MEDS ORDERED: ALBUTEROL/IPRATROPIUM 2.5MG/0.5MG, 3 ML ONE (00:06)
[2021-03-18] MEDS ORDERED: ALBU0.63 NEB (00:09)
[2021-03-18] MEDS ORDERED: IPRA4AER INH (00:09)
[2021-03-18] MEDS ORDERED: TIOT18CA INH (00:10)
[2021-03-18] MEDS ORDERED: FLUT1BLS3 IH (00:23)
[2021-03-18 02:05] VITALS: BP 128/62
[2021-03-18] MEDS: LACTATED RINGERS 1,000 ML IV SCH (03:29)
[2021-03-18 03:41] LABS: BASOPHILS % (AUTO) 0 % (0-1); EOSINOPHILS % (AUTO) 1 % (1-7); LYMPHOCYTES % (AUTO) 11 % (22-44); MEAN CORPUSCULAR HEMOGLOBIN 35.8 pg (27.0-34.8); MEAN CORPUSCULAR HGB CONC 33.7 g/dL (32.4-35.8); MEAN PLATELET VOLUME 8.4 fL (7.4-10.4); MONOCYTES % (AUTO) 5 % (2-9); NEUTROPHILS % (AUTO) 83 % (42-75); PLATELET COUNT 145 x10^3/uL (130-400); RED BLOOD COUNT 2.91 x10^6/uL (3.82-5.3); RED CELL DISTRIBUTION WIDTH 13.9 % (9.6-15.2)
[2021-03-18 03:53] LABS: ANION GAP 5 mmol/L (5-15); CALCIUM 8.2 mg/dL (8.5-10.1); CHLORIDE 101 mmol/L (98-107); CREATININE 0.44 mg/dL (0.55-1.02)
[2021-03-18] MEDS: KETOROLAC 30 MG/1 ML IVPush SCH ×3 (06:10→17:33)
[2021-03-18] MEDS: ACETAMINOPHEN 500 MG TABLET PO SCH ×3 (06:11→17:33)
[2021-03-18] MEDS: INSULIN LISPRO 100 UNITS/ML, PEN SQ-INSULIN SCH ×4 (07:00→20:21)
[2021-03-18] MEDS: ALBUTEROL/IPRATROPIUM 2.5MG/0.5MG, 3 ML NPPB SCH ×2 (07:56→20:45)
[2021-03-18] MEDS: BUDESONIDE 0.5 MG/2 ML INHA NPPB SCH ×2 (07:56→20:45)
[2021-03-18] MEDS: ERTAPENEM 1 GM in SODIUM CHLORIDE 0.9% 50 ML IV SCH (08:06)
[2021-03-18] MEDS: ENOXAPARIN 40 MG/0.4 ML SQ SCH (08:06)
[2021-03-18 09:37] VITALS: BP 137/66
[2021-03-18 15:00] VITALS: BP 137/84
[2021-03-18] MEDS: ATORVASTATIN 40 MG TABLET PO SCH (20:17)
[2021-03-18 20:32] VITALS: BP 141/83
[2021-03-19] MEDS: ACETAMINOPHEN 500 MG TABLET PO SCH ×5 (00:15→23:54)
[2021-03-19 01:38] VITALS: BP 148/82
[2021-03-19] MEDS: ALBUTEROL SULFATE 2.5 MG/3 ML NPPB PRN (05:18)
[2021-03-19] MEDS: INSULIN LISPRO 100 UNITS/ML, PEN SQ-INSULIN SCH ×4 (06:55→21:00)
[2021-03-19 07:52] VITALS: BP 150/80
[2021-03-19] MEDS: ENOXAPARIN 40 MG/0.4 ML SQ SCH (08:06)
[2021-03-19] MEDS: ERTAPENEM 1 GM in SODIUM CHLORIDE 0.9% 50 ML IV SCH (08:06)
[2021-03-19] MEDS: DILTIAZEM 120 MG CAP.ER.24H PO SCH (08:11)
[2021-03-19] MEDS: ONDANSETRON 2MG/ML, 2ML IV PRN ×3 (08:13→21:09)
[2021-03-19] MEDS: BUDESONIDE 0.5 MG/2 ML INHA NPPB SCH ×2 (09:50→20:15)
[2021-03-19] MEDS: ALBUTEROL/IPRATROPIUM 2.5MG/0.5MG, 3 ML NPPB SCH ×2 (09:50→20:15)
[2021-03-19 14:16] VITALS: BP 133/80
[2021-03-19] MEDS: DIPHENHYDRAMINE 50 MG/ML, 1ML IVPush PRN ×2 (17:23→23:55)
[2021-03-19 20:10] VITALS: BP 141/74
[2021-03-19] MEDS: ATORVASTATIN 40 MG TABLET PO SCH (21:09)
[2021-03-20 00:30] VITALS: BP 127/77
[2021-03-20] MEDS: ALBUTEROL SULFATE 2.5 MG/3 ML NPPB PRN (01:30)
[2021-03-20] MEDS ORDERED: LORazepam 2 MG/ML, 1ML IVPush ONE (03:00)
[2021-03-20] MEDS ORDERED: FUROSEMIDE 40 MG/4 ML IV ONE (03:00)
[2021-03-20] MEDS: ACETAMINOPHEN 500 MG TABLET PO SCH ×3 (06:00→17:38)
[2021-03-20 06:06] LABS: MEAN CORPUSCULAR HEMOGLOBIN 35.8 pg (27.0-34.8); MEAN CORPUSCULAR HGB CONC 34.1 g/dL (32.4-35.8); MEAN PLATELET VOLUME 8.3 fL (7.4-10.4); PLATELET COUNT 205 x10^3/uL (130-400); RED CELL DISTRIBUTION WIDTH 13.7 % (9.6-15.2)
[2021-03-20 06:17] LABS: ALANINE AMINOTRANSFERASE 51 U/L (12-78); ALBUMIN 2.2 g/dL (3.4-5.0); ANION GAP 10 mmol/L (5-15); CALCIUM 8.7 mg/dL (8.5-10.1); CHLORIDE 96 mmol/L (98-107); CREATININE 0.41 mg/dL (0.55-1.02)
[2021-03-20 06:19] LABS: ALKALINE PHOSPHATASE 50 U/L (45-117); BILIRUBIN,TOTAL 0.7 mg/dL (0.2-1.0); TOTAL PROTEIN 6.1 g/dL (6.4-8.2)
[2021-03-20 06:31] LABS: <PLATELET ESTIMATE> ADEQUATE; <PLT MORPHOLOGY> NORMAL PLT MORPH; <RBC MORPHOLOGY> NORMAL; BAND#(MANUAL) 0.96 x10^3/uL; BANDS%(MANUAL) 15 % (0-7); LYMPH#(MANUAL) 0.45 x10^3/uL (1-3.4); LYMPHS% (MANUAL) 7 % (22-44); METAMYELOCYTES# (MANUAL) 0.06 x10^3/uL (0-0); METAMYELOCYTES% (MANUAL) 1 % (0-1); MONOS#(MANUAL) 0.13 x10^3/uL (0.3-2.7); MONOS% (MANUAL) 2 % (2-9); SEGS% (MANUAL) 75 % (42-75)
[2021-03-20] MEDS: INSULIN LISPRO 100 UNITS/ML, PEN SQ-INSULIN SCH ×4 (07:00→21:35)
[2021-03-20 07:03] VITALS: BP 123/77
[2021-03-20] MEDS: ALBUTEROL/IPRATROPIUM 2.5MG/0.5MG, 3 ML NPPB SCH ×2 (07:25→19:36)
[2021-03-20] MEDS: BUDESONIDE 0.5 MG/2 ML INHA NPPB SCH ×2 (07:25→19:37)
[2021-03-20] MEDS ORDERED: BISACODYL 10 MG SUPP PR PRN (07:30)
[2021-03-20] MEDS: ENOXAPARIN 40 MG/0.4 ML SQ SCH (07:58)
[2021-03-20] MEDS: DILTIAZEM 120 MG CAP.ER.24H PO SCH (07:58)
[2021-03-20] MEDS: ERTAPENEM 1 GM in SODIUM CHLORIDE 0.9% 50 ML IV SCH (07:58)
[2021-03-20] MEDS: SENNA/DOCUSATE TABLET PO SCH (07:59)
[2021-03-20] MEDS: ONDANSETRON 2MG/ML, 2ML IV PRN (09:10)
[2021-03-20] MEDS ORDERED: ACET-1600 PO (12:28)
[2021-03-20] MEDS ORDERED: ONDA4TAB7 PO (12:30)
[2021-03-20 13:10] VITALS: BP 117/74
[2021-03-20 17:00] VITALS: BP 118/77
[2021-03-20 19:48] VITALS: BP 127/72
[2021-03-20] MEDS: ATORVASTATIN 40 MG TABLET PO SCH (21:32)
[2021-03-21 01:41] VITALS: BP 124/70
[2021-03-21] MEDS: INSULIN LISPRO 100 UNITS/ML, PEN SQ-INSULIN SCH ×2 (07:00→11:00)
[2021-03-21 07:27] VITALS: BP 125/66
[2021-03-21] MEDS: SENNA/DOCUSATE TABLET PO SCH (08:25)
[2021-03-21] MEDS: ENOXAPARIN 40 MG/0.4 ML SQ SCH (08:25)
[2021-03-21] MEDS: DILTIAZEM 120 MG CAP.ER.24H PO SCH (08:25)
[2021-03-21] MEDS: BUDESONIDE 0.5 MG/2 ML INHA NPPB SCH (10:35)
[2021-03-21] MEDS: ALBUTEROL/IPRATROPIUM 2.5MG/0.5MG, 3 ML NPPB SCH (10:35)
[2021-03-21 12:41] VITALS: BP 136/78
== END 2021-03-21 17:24 | disposition home health service (06) | DRG 330 ==
LOC: ED 10:08 → EDIP 12:11 → 3N 13:53 → 4NE 22:35 → DCLOUNGE 03-20 16:05 → 4NE 03-20 16:37
PROVIDERS: ADMIT Hospitalist; ATTEND Hospitalist
PROC: 0WQF0ZZ Repair Abdominal Wall, Open Approach (ICD-10-PCS; 2021-03-15)
PROC: 0T9B70Z Drainage of Bladder with Drainage Device, Via Natural or Artificial Opening (ICD-10-PCS; 2021-03-15)
PROC: 0DTF0ZZ Resection of Right Large Intestine, Open Approach (ICD-10-PCS; principal; 2021-03-15 18:00)
DX: K56.2 Volvulus (principal); E87.1 Hypo-osmolality and hyponatremia; J84.9 Interstitial pulmonary disease, unspecified; J96.11 Chronic respiratory failure with hypoxia; Z20.822 Contact with and (suspected) exposure to COVID-19; K42.9 Umbilical hernia without obstruction or gangrene; K21.9 Gastro-esophageal reflux disease without esophagitis; I10 Essential (primary) hypertension; E11.65 Type 2 diabetes mellitus with hyperglycemia; E78.5 Hyperlipidemia, unspecified; M81.0 Age-related osteoporosis without current pathological fracture; G47.00 Insomnia, unspecified; Z96.641 Presence of right artificial hip joint; Z90.49 Acquired absence of other specified parts of digestive tract; Z80.3 Family history of malignant neoplasm of breast; Q75.2 Hypertelorism
CPT/HCPCS: 36415; 71045; 74018; 74021; 74177; 80048; 80053; 81001; 82607; 82962; 83036; 83690; 83735; 84100; 84145; 84439; 84443; 84484; 85025; 85610; 87086; 87635; 88307; 93005; 94640; 96374; 96375; C1729; G0378; J0690; J1100; J1335; J1650; J1885; J1940; J2405; J2704; J2710; J3010; J7120; J7613; J7626; Q9967; C1765; J0330; J1200; J1815; J2060; J2270; J2370; J2800

== ENCOUNTER 2021-03-22 10:50 | Emergency (ER) | payer MEDICARE ==
[~2021-03-22] VITALS: Ht 157.5 cm; Wt 65.0 kg
[~2021-03-22 10:50] MED LIST changes: +ACET-1600 PO; +ALBU0.63 NEB; +ALEN70TA77 PO; +ATOR40TA78 PO; +FLUT15.845 XX; +FLUT1BLS3 IH; +IPRA4AER INH; +MONT10TA6 PO; +ONDA4TAB7 PO; +TIOT18CA INH
--- NOTE | 2021-03-22 11:08 | NUR ---
[facility] BECAUSE PTS WOUND VAC'S BATTERY . PT HAS AN APPOINTMENT WITH [facility] TOMORROW TO REMOVE WOUND VAC. PT ATTACHED TO MONITORS. VSS. POSTIONED TO DEBBY. JENNY.
--- NOTE | 2021-03-22 12:13 | NUR ---
MIDLINE INCISION WITH WOUND VAC OBSERVED TO BE CDI.
--- NOTE | 2021-03-22 12:22 | NUR ---
PT ASLEEP WITH EVEN AND UNLABORED RESPRIATIONS. JENNY.
--- NOTE | 2021-03-22 13:48 | NUR ---
PT RESTING IN BED COMFORTABLY. VSS. NADN. AWAITING SOCIAL WORK.
--- NOTE | 2021-03-22 13:56 | NUR ---
PT PROVIDED WITH MEAL TRAY AND WATER. OFFERED TOLIET.
--- NOTE | 2021-03-22 14:19 | NUR ---
BREAK RN: SW AT BEDSIDE.
--- NOTE | 2021-03-22 16:11 | NUR ---
SURGICAL CONSULTED TO GET WOUND VAC ORDERS.
--- NOTE | 2021-03-22 16:17 | NUR ---
per DR. Greg bronson for this rn to remove wound vac. pt to dc
[2021-03-22 16:31] VITALS: BP 134/72
--- NOTE | 2021-03-22 16:32 | NUR ---
WOUND VAC REMOVED. MIDLINE INCISION WITH STAPPLES OBSEVED CDI. DRESSED. PT CLEANED. VSS. NADN.
--- NOTE | 2021-03-22 18:32 | NUR ---
Patient and Caregiver given discharge instructions and they have confirmed that they understand the instructions. Patient ambulatory with steady gait. NAD, all questions answered appropriately, denies additional needs at this time. No personal belongings left in room after discharge.
== END 2021-03-22 18:32 | disposition home or self-care (01) ==
LOC: ED 10:58
DX: Z48.01 Encounter for change or removal of surgical wound dressing (principal); I10 Essential (primary) hypertension; E11.9 Type 2 diabetes mellitus without complications
CPT/HCPCS: 99283